=== PATIENT | male | born 1980 | race Caucasian/White ===

== ENCOUNTER 2016-07-08 22:41 | Emergency (ER) | payer OTHER ==
[2016-07-09 00:08] VITALS: BP 136/78
== END 2016-07-09 00:08 | disposition home or self-care (01) ==
LOC: ED 22:41
DX: S70.11XA Contusion of right thigh, initial encounter (principal); W50.0XXA Accidental hit or strike by another person, initial encounter; Y93.66 Activity, soccer; Y99.8 Other external cause status; Y92.89 Other specified places as the place of occurrence of the external cause